=== PATIENT | female | born 2000 | race Caucasian/White ===

== ENCOUNTER 2019-01-22 00:09 | Emergency (ER) | payer OTHER ==
[~2019-01-22] VITALS: Ht 152.4 cm; Wt 69.0 kg
[2019-01-22 00:12] VITALS: BP 114/56; PULSE 76; RESP 18; Ht 152.4 cm; Wt 69.0 kg
--- NOTE | 2019-01-22 03:11 | ERD ---
ER Documentation Chief Complaint Chief Complaint NOTIFIED BY PARTNER THAT SHE MAY HAVE STD HPI 18-year-old female, presents to the emergency department requesting treatment for chlamydia, according to the patient, her boyfriend tested positive for chlamydia. She denies pelvic pain, no vaginal discharge, no fever or chills, no dysuria. ROS All systems reviewed and are negative except as per history of present illness. Allergies Allergies: Coded Allergies: No Known Allergy (Unverified , 01/22/19) Physical Exam Vitals Vital Signs Date Temp Pulse Resp B/P (MAP) Pulse Ox O2 O2 Flow FiO2 Time Delivery Rate 01/22/19 97.7 76 18 114/56 98 00:12 (75) Physical Exam Patient alert, oriented, vital signs stable. HEENT: Normocephalic, atraumatic. EYES: PERRLA, EOMI, Sclera and conjunctiva appear normal. EARS: Canals clear, tympanic membranes WNL. THROAT: Normal oropharynx. NECK: Supple, No lymphadenopathy. Full ROM without pain or tenderness. HEART: RRR, no rubs, murmurs, clicks or gallops. LUNGS: Clear to auscultation. ABDOMEN: Soft, non-tender without masses or hepatosplenomegaly. EXTREMITIES: No edema bilaterally. BACK: Full ROM, no deformity, normal back exam NEURO: Cranial nerves grossly intact, no motor or sensory deficit SKIN: No rashes, no petechia. Results 24 hrs Current Medications Medications Dose Sig/Cherri Start Time Status Last (Trade) Ordered Route PRN Stop Time Admin Dose Reason Admin 1,000 mg ONCE STAT 01/22/19 DC 01/22/19 Azithromycin PO 03:36 01/22/19 04:06 (Zithromax) 03:55 Procedures/MDM Vital signs stable. Differential diagnosis considered include UTI, cystitis, yeast infection, vaginitis, bacterial vaginosis, pelvic inflammatory disease, STI's . Less likely malignancy or acute abdomen. During the ED course the patient remained stable, no new complaints. Results and clinical impression discussed with the patient who agrees with management. The patient is stable to be treated outpatient and will be discharged home; some side effects of prescribed medications (headache, rash, na usea, vomiting, diarrhea, drowsiness, habituation, bleeding, hypertension, interactions with other medications) were reviewed. Follow up with the primary care provider in the next 48h has been recommended. If symptoms persist, worsen or new symptoms develop, then patient should return to the ED immediately. Instructions explained and given directly by me to the patient with ackn owledgment and demonstrated understanding. Disclaimer: Inadvertent spelling and grammatical errors are likely due to EHR/dictation software use and do not reflect on the overall quality of patient care. Also, please note that the electronic time recorded on this note does not necessarily reflect the actual time of the patient encounter. Departure Diagnosis: Primary Impression: Chlamydia contact Condition: Stable Additional Instructions: Thank you very much for allowing us to participate in your care. Your health and safety is our top priority at [facility]. Call your primary care doctor TOMORROW for an appointment during the next 2-4 days and bring all the information and medications prescribed. Have prescriptions filled and follow precisely the directions on the label. If the symptoms get worse and your provider is unavailable, return to the Emergency Department immediately. ANGEL DELATORRE MD Jan 22, 2019 03:11
[2019-01-22] MEDS ORDERED: AZITHROMYCIN 250 MG TAB PO STA (03:36)
== END 2019-01-22 04:10 | disposition home or self-care (01) ==
LOC: FTE 00:09
DX: A74.9 Chlamydial infection, unspecified (principal)
CPT/HCPCS: 87591; Z7610; 99283